=== PATIENT | male | born 2000 | race Caucasian/White ===

== ENCOUNTER 2025-01-23 08:17 | Day surgery (SDC) | payer BC ==
[~2025-01-23 08:17] MED LIST: Magnesium Sulfate (4.06 MEQ/ML) 5 GM/10 ML SDV ONE
[2025-01-23] MEDS: Lactated Ringers 1,000 ML IV SCH (08:40)
[2025-01-23] MEDS ORDERED: Ondansetron 4 MG/2 ML SDV ONE (08:48)
[2025-01-23] MEDS ORDERED: propofoL 500 MG/50 ML 50 ML ONE (08:48)
== END 2025-01-23 10:09 | disposition home or self-care (01) ==
LOC: MW.SDS 08:17
PROVIDERS: ATTEND Surgery
DX: K29.50 Unspecified chronic gastritis without bleeding (principal); K31.89 Other diseases of stomach and duodenum; K64.8 Other hemorrhoids; K20.90 Esophagitis, unspecified without bleeding
CPT/HCPCS: 43239; 45378; J1596; J2003; J2405; J2704; J3475; J7120; 00813